=== PATIENT | female | born 2000 | race Caucasian/White ===

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

== ENCOUNTER 2025-09-25 20:22 | Observation (INO) | payer OTHER ==
[2025-09-25 21:09] LABS: Urine Protein, UAD TRACE (Negative)
[2025-09-25 21:24] LABS: Hematocrit 37.1 % (36.0-46.0); Hemoglobin 12.4 g/dL (12.2-16.2); Mean Corpuscular Hemoglobin 30.2 pg (28.0-32.0); Mean Corpuscular Volume 90.3 fL (80.0-100.0); Nucleated Red Blood Cells % 0.0 %
[2025-09-25 21:35] LABS: Alanine Aminotransferase 19 U/L (7-40); Albumin 3.8 g/dL (3.2-4.8); Alkaline Phosphatase 113 U/L (46-116); Anion Gap 13 (5-15); Calcium 8.9 mg/dL (8.7-10.4); Glucose 78 mg/dL (74-106); Potassium 3.6 mmol/L (3.5-5.1); Sodium 141 mmol/L (136-145); Total Protein 6.5 g/dL (5.7-8.2)
[2025-09-25 21:36] LABS: Bilirubin, Total 0.4 mg/dL (0.2-1.0)
[2025-09-25 21:40] LABS: BUN/Creatinine Ratio 9.1 (10.0-20.0); Blood Urea Nitrogen < 5 mg/dL (9-23); Carbon Dioxide 19 mmol/L (20-31); Chloride 109 mmol/L (98-107)
--- NOTE | 2025-09-25 22:12 | DVH ---
LIMITED OB ULTRASOUND > 14 WKS: HISTORY: ABD PAIN TECHNIQUE: Multiple real-time grayscale images of the gravid uterus with duplex Doppler color flow and M-mode spectral analysis. TRANSDUCER: Transabdominal FINDINGS: IUP single live fetus at 34 weeks 6 days based on composite averages of the BPD, head circumference, abdominal circumference and femur length heart rate 141 beats per minute MVP: 4.4 cm Cervix 2.9 cm and closed Cephalic Presentation Posterior Grade 2 Placenta without previa or abruption. IMPRESSION: 1. IUP single live fetus at 24 weeks 6 days AUA corresponding to an CHRISTIANO of 01/09/2026 2. Cervix measures 2.96 cm long and appears closed. 3. FHR: 141 beats per minute
--- NOTE | 2025-09-25 22:17 | DVH ---
INDICATION: ABD PAIN TECHNIQUE: Multiple real-time sonographic images of the kidneys and bladder were obtained. COMPARISON: None FINDINGS: The right kidney measures 10.3 cm in length, which is normal in size. There is normal echogenicity of the right kidney. No hydronephrosis. The left kidney measures 11.3 cm in length, which is normal in size. There is normal echogenicity of the left kidney. No hydronephrosis. No large intraluminal masses are seen in the bladder. Prior to voiding the bladder volume measures volume 81.4 mL. Bladder wall 3 mL Ureteral jets were visualized bilaterally IMPRESSION: 1. Normal sonographic appearance of the kidneys. No hydronephrosis. 2. Right kidney measures 10.3 cm. Left kidney measures 11.3 cm. 3. No hydronephrosis bilaterally 4. Bladder wall thickness is 3 mm. 5. Prevoid bladder volume 81.4 mL. 6. Incidentally visualized were gallstones. Gallbladder wall measures 0.27 cm which is within normal limits.
[2025-09-25] MEDS ORDERED: PREN-129 OR (22:23)
--- NOTE | 2025-09-25 22:35 | DVHDS2 ---
Discharge Summary Date of Admission Sep 25, 2025 at 20:22 Date of Discharge: Sep 25, 2025 Labs/Diagnostic Data: Laboratory Results Test 09/25/25 21:04 09/25/25 20:50 White Blood Count 15.5 10^3/uL (4.4-10.8) Red Blood Count 4.10 10^6/uL (4.0-5.20) Hemoglobin 12.4 g/dL (12.2-16.2) Hematocrit 37.1 % (36.0-46.0) Mean Corpuscular Volume 90.3 fL (80.0-100.0) Mean Corpuscular Hemoglobin 30.2 pg (28.0-32.0) Mean Corpuscular Hemoglobin Concent 33.4 g/dL (32.0-36.0) Red Cell Distribution Width 14.2 % (11.8-14.3) Platelet Count 236 10^3/uL (140-450) Mean Platelet Volume 8.3 fL (6.9-10.8) Neutrophils (%) (Auto) 72.0 % (37.0-80.0) Lymphocytes (%) (Auto) 19.6 % (10.0-50.0) Monocytes (%) (Auto) 6.7 % (0.0-12.0) Eosinophils (%) (Auto) 1.5 % (0.0-7.0) Basophils (%) (Auto) 0.2 % (0.0-2.0) Neutrophils # (Auto) 11.2 10 ^3/uL (1.6-8.6) Lymphocytes # (Auto) 3.0 10 ^3/uL (0.4-5.4) Monocytes # (Auto) 1.0 10 ^3/uL (0-1.3) Eosinophils # (Auto) 0.2 10 ^3/uL (0-0.8) Basophils # (Auto) 0 10 ^3/uL (0-0.2) Nucleated Red Blood Cells 0.0 % Sodium Level 141 mmol/L (136-145) Potassium Level 3.6 mmol/L (3.5-5.1) Chloride Level 109 mmol/L (98-107) Carbon Dioxide Level 19 mmol/L (20-31) Anion Gap 13 (5-15) Blood Urea Nitrogen < 5 mg/dL (9-23) Creatinine 0.55 mg/dL (0.550-1.02) Glomerular Filtration Rate Calc 131 mL/min (>90) BUN/Creatinine Ratio 9.1 (10.0-20.0) Serum Glucose 78 mg/dL (74-106) Calcium Level 8.9 mg/dL (8.7-10.4) Total Bilirubin 0.4 mg/dL (0.2-1.0) Aspartate Amino Transferase (AST) 17 U/L (13-40) Alanine Aminotransferase (ALT) 19 U/L (7-40) Alkaline Phosphatase 113 U/L (46-116) Total Protein 6.5 g/dL (5.7-8.2) Albumin 3.8 g/dL (3.2-4.8) Urine Color Yellow (Yellow) Urine Clarity Turbid (Clear) Urine pH 6.5 (5.0-9.0) Urine Specific [place] 1.015 (1.001-1.035) Urine Protein Trace (Negative) Urine Ketones Negative (Negative) Urine Blood 1+ /uL (Negative) Urine Nitrite Negative (Negative) Urine Bilirubin Negative (Negative) Urine Urobilinogen Normal mg/dL (Negative) Urine Leukocyte Esterase Negative /uL (Negative) Urine RBC 34 /hpf (0 - 4) Urine Microscopic WBC 5 /HPF (0-5) Urine Squamous Epithelial Cells Few /hpf (<5) Urine Bacteria Few /hpf (None Seen) Urine Mucus Few (None Seen) Urine Glucose Normal mg/dL (Normal) Other Laboratory Tests 09/25/25 21:04 Brief Hx & Hospital Course: [place] [id number] white count no fever urines no nitrites some WBCs Consults/Reason for consult None Operations or Procedures NST BPP performed reassuring Condition at Discharge: Good Final Diagnosis/Problems List 24 weeks reassuring maternal and evaluation be treated for sinusitis broad-spectrum Amoxil Discharge Disposition: Home Discharge Instruct/Medications Diet: See Comment Diet comment: low fat diet Activity: Light activity Activity comment: Kick counts labor precautions Follow Up/Referral: KEEP CURRENT APPOINTMENT WITH [facility] Medications: CONTINUE TAKING ALL CURRENT MEDICATIONS. START TAKING AMOXICILLIN BY MOUTH 3 TIMES A DAY Miscellaneous Medications Vit W/ Ferrous Fumara (), 1 OR, (Reported) Discharge Statement: "Patient was advised to return to the ER or call 911 if any headaches, dizziness, shortness of breath, chest pain, abdominal pain, bleeding, fevers, or worsening of medical condition. Patient was counseled about treatment plan, medications, possible side effects, patientverbalized understanding. All questions were answered to the best of my ability. This discharge took greater then 30 minutes in planning, reviewing documentation, counseling the patient, and discussing with other team members." ASSESSMENT ASSESSMENT Assessment Visit Coding OBGYN Date of Service: Sep 25, 2025 Billing Provider: ELPIDIO DUONG DO ANESTHESIOLOGY TECHNOLOGIST Common Visit Codes: 51265-NNU/OBS SAME DATE (LOW), 53610-TIF/OBS SAME DATE (MOD), 99653-ZUN/OBS SAME DATE (HIGH) ANESTHESIOLOGY TECHNOLOGIST Procedure Codes: 71471-87- NON-STRESS TEST ELPIDIO DUONG DO Sep 25, 2025 22:35
== END 2025-09-25 22:33 | disposition home or self-care (01) ==
LOC: LDRP 20:22
PROVIDERS: ADMIT Obstetrics & Gynecology; ATTEND Obstetrics & Gynecology
DX: O26.892 Other specified pregnancy related conditions, second trimester (principal); J32.9 Chronic sinusitis, unspecified; Z3A.24 24 weeks gestation of pregnancy; Z98.890 Other specified postprocedural states
CPT/HCPCS: 36415; 76775; 76815; 80053; 81001; 81002; 85025; G0378